=== PATIENT | male | born 1995 | race Caucasian/White ===

== ENCOUNTER 2018-02-10 12:11 | Emergency (ER) | payer OTHER ==
[2018-02-10] MEDS ORDERED: Bacitracin Zinc 1 Packet ONE (13:48)
--- NOTE | 2018-02-10 13:51 | RAD ---
LEFT FOOT 3 VIEWS: History Injury. COMPARISON: None. FINDINGS: No fracture. No malalignment. There is a bipartite medial hallux sesamoid. IMPRESSION: 1. No acute fracture or malalignment. 2. Bipartite medial hallux sesamoid. POS: [facility]
== END 2018-02-10 14:00 | disposition home or self-care (01) ==
LOC: ERS 12:11
DX: S91.112A Laceration without foreign body of left great toe without damage to nail, initial encounter (principal); W31.89XA Contact with other specified machinery, initial encounter; Y99.0 Civilian activity done for income or pay